=== PATIENT | female | born 1990 | race Two or more races ===

== ENCOUNTER 2017-01-31 15:15 | Inpatient (IN) | payer SELFPAY ==
[~2017-01-31] VITALS: Ht 152.4 cm; Wt 111.6 kg
[2017-01-31] MEDS ORDERED: CITRIC ACID/SODIUM CITRATE 30 ML SOLUTION. PO ONE (17:15)
[2017-01-31 17:39] LABS: HEMATOCRIT 36.6 % (36.0-47.0); HEMOGLOBIN 12.1 g/dL (12.0-15.5); RED BLOOD COUNT 4.59 x10^6/uL (3.50-5.40); RED CELL DISTRIBUTION WIDTH 15.7 % (11.5-14.5)
[2017-01-31 17:43] VITALS: BP 109/71
[2017-01-31] MEDS ORDERED: PNV1TABL25 PO (17:46)
[2017-01-31] MEDS: IV RINGERS,LACTATED 1000ML 1,000 ML IV SCH ×3 (17:47→22:00)
[2017-01-31] MEDS ORDERED: 0.9 % SODIUM CHLORIDE 10 ML DISP.SYRIN. IV PRN (19:15)
[2017-01-31] MEDS ORDERED: MMR per PROTOCOL. MC PRN (19:15)
[2017-01-31] MEDS ORDERED: ZOLPIDEM 5 MG TABLET. PO PRN (19:15)
[2017-01-31] MEDS ORDERED: HYDROCORTISONE 1% TOPICAL OINTMENT 30GM TUBE. TP PRN (19:15)
[2017-01-31] MEDS ORDERED: ONDANSETRON PF 4 MG/2 ML VIAL. IV PRN (19:15)
[2017-01-31] MEDS ORDERED: diphenhydrAMINE ORAL ELIXIR 12.5 MG/5 ML ML PO PRN (19:15)
[2017-01-31] MEDS ORDERED: OXYTOCIN 30 UNIT/500 ML PREMIX 500 ML IV PRN (19:15)
[2017-01-31] MEDS ORDERED: ATROPINE 0.5 MG/5 ML DISP.SYRIN. IV PRN (19:30)
[2017-01-31] MEDS ORDERED: NALOXONE 0.4 MG/ML VIAL. IV PRN (19:30)
[2017-01-31] MEDS ORDERED: MORPHINE PF 5 MG/10 ML VIAL. ONE (19:39)
[2017-01-31] MEDS ORDERED: fentaNYL PF VIAL 100 MCG/2 ML VIAL ONE (19:39)
[2017-01-31] MEDS ORDERED: LIDOCAINE 1% PF 5 ML VIAL. ONE (19:52)
[2017-01-31] MEDS ORDERED: PROPOFOL 0 ML IV ONE (20:10)
[2017-01-31] MEDS ORDERED: OXYTOCIN 10 UNIT/ML VIAL. ONE ×3 (20:20→20:51)
[2017-01-31] MEDS ORDERED: ONDANSETRON PF 4 MG/2 ML VIAL. ONE (20:26)
--- NOTE | 2017-01-31 22:30 | HP ---
ADMIT DATE: 01/31/2017 CHIEF COMPLAINT AND HISTORY OF PRESENT ILLNESS: This patient is a 27-year-old [place] lady, who is a 3 para 2, EDC 02/04/2017, had a course without any problems, but she did gain more weight during and also has a large baby and she came into labor and delivery room with a history of having pelvic pressure and some pelvic pain. OBJECTIVE: VITAL SIGNS: Stable. ABDOMEN: Term-size uterus. heart tones are 140 per minute, vertex presenting. PELVIC: Shows cervical os is closed and presenting part is way up high and ____. EXTREMITIES: No edema of feet. IMPRESSION: 3 para 2 and obesity with a large baby. PLAN: Primary lower segment section. CELESTINE FAJARDO MD DR: HERNANDEZ/yecenia JOB#: [id number] / [id number]
[2017-02-01] VITALS (7 sets, daily range): BP systolic 81–112; BP diastolic 42–63
--- NOTE | 2017-02-01 00:21 | OP ---
DATE OF SURGERY: PREOPERATIVE DIAGNOSIS: 3, para 2, large baby, obesity. POSTOPERATIVE DIAGNOSIS: 3, para 2, large baby, obesity. OPERATION PERFORMED: Lower segment section. OPERATIVE PROCEDURE: The patient was taken to the operating room and a spinal block was given and the patient was placed in the dorsal supine position. Rosas catheter introduced in the bladder for continuous bladder drainage. Lower abdomen is prepped and draped in the usual manner. Pfannenstiel incision was done. Abdomen opened in layers and the bladder flap peritoneum was dissected. Bladder was pushed way down the lower segment of the uterus. An incision was made on the uterus and was extended on either side using index fingers. Amniotomy done. A live female weighing 8 pounds was delivered at 2025 on 01/31/2017, with the score of 8 and 9 without any problem. There was cord around the neck, which was released at the time of the delivery. Cord was clamped and cut. Cord blood was taken. Placenta removed. membranes that was also from the uterus. Uterus sutured in 2 layers using #1 chromic catgut sutures and a reperitonealization was done with continuous 0 chromic catgut sutures and all the clots in the pelvic cavity removed. Abdomen closed in layers using continuous 0 chromic catgut sutures for the peritoneum, the muscle, the fascia, 3-0 plain sutures applied for subcutaneous tissue and the 3-0 Vicryl subcutaneous sutures were placed, a pressure dressing was given. The patient was sent to the recovery room in good condition. No complications encountered at the time of the procedure. Estimated blood loss about 700 mL. Baby is referred to filtering machine tender for further care and treatment. Mother tolerated the delivery well. No complications. CELESTINE FAJARDO MD DR: HERNANDEZ/yecenia JOB#: [id number] / [id number]
[2017-02-01] MEDS: KETOROLAC TROMETHAMINE 30 MG/ML INJ. IV PRN ×2 (00:46→08:36)
[2017-02-01] MEDS: IV RINGERS,LACTATED 1000ML 1,000 ML IV SCH (03:55)
[2017-02-01] MEDS ORDERED: FERROUS SULFATE 325 MG TABLET. PO SCH (08:00)
--- NOTE | 2017-02-01 09:15 | PDOC ---
SUBJECTIVE Subjective Patient feeling better Doing ok OBJECTIVE Objective Vital signs stable No fever Vital Signs Vital Signs Date Time Temp Pulse Resp B/P Pulse Ox O2 Delivery O2 Flow Rate FiO2 02/01/17 05:57 97.9 77 18 92/50 97.9 02/01/17 01:38 97.7 78 16 81/42 94 Room Air 97.7 02/01/17 00:40 97.5 79 18 100/63 95 Room Air 97.5 02/01/17 00:10 97.7 77 18 111/50 97 Room Air 97.7 01/31/17 17:43 96.0 20 109/71 Room Air 96.0 I & O Intake and Output 02/01/17 07:00 Intake Total 1754 ml Output Total 150 ml Balance 1604 ml Intake Oral 500 ml IV Total 625 ml Other 629 ml Output Urine Total 150 ml PHYSICAL EXAM Physical Exam Abdomen soft Uterus firm Lochia Normal ASSESSMENT/PLAN Assessment/Plan Doing well Will Ambulate today Problems: COMMENT Lab Laboratory Tests Test 01/31/17 17:25 White Blood Count 12.0x10^3/uL (4.0-11.0) Red Blood Count 4.59x10^6/uL (3.50-5.40) Hemoglobin 12.1g/dL (12.0-15.5) Hematocrit 36.6% (36.0-47.0) Mean Corpuscular Volume 80fL (79-100) Mean Corpuscular Hemoglobin 26pg (25-35) Mean Corpuscular Hemoglobin Concent 33g/dL (31-37) Red Cell Distribution Width 15.7% (11.5-14.5) Platelet Count 464x10^3/uL (140-400) CELESTINE FAJARDO MD Feb 01, 2017 09:15
[2017-02-01] MEDS: IBUPROFEN 600 MG TABLET. PO SCH ×2 (12:00→13:51)
[2017-02-01] MEDS: OXYCODONE/APAP 5/325 TABLET. PO PRN ×2 (12:52→16:16)
[2017-02-02 06:00] VITALS: BP 107/58
[2017-02-02] MEDS: OXYCODONE/APAP 5/325 TABLET. PO PRN ×2 (06:16→17:16)
[2017-02-02 06:19] LABS: RPR REFLEX Non Reactive (Non Reactive)
[2017-02-02] MEDS: DOCUSATE SODIUM 100 MG CAPSULE. PO PRN (08:07)
[2017-02-02] MEDS: IBUPROFEN 600 MG TABLET. PO SCH ×2 (08:09→17:17)
--- NOTE | 2017-02-02 08:31 | PDOC ---
SUBJECTIVE Subjective Patient breast feeding the baby OBJECTIVE Objective Vital signs stable No problems Vital Signs Vital Signs Date Time Temp Pulse Resp B/P Pulse Ox O2 Delivery O2 Flow Rate FiO2 02/02/17 06:16 18 96 Room Air 02/02/17 06:00 98.1 87 18 107/58 96 98.1 02/01/17 21:00 97.9 86 98/58 97 97.9 02/01/17 16:22 98.3 68 18 112/62 98.3 02/01/17 11:57 98.1 71 20 93/47 97 Room Air 98.1 I & O Intake and Output 02/02/17 06:59 Intake Total 210 ml Output Total 550 ml Balance -340 ml Intake Oral 210 ml Output Urine Total 550 ml PHYSICAL EXAM Physical Exam Abdomen soft No fever ASSESSMENT/PLAN Assessment/Plan Doing ok Incision healing ok Problems: CELESTINE FAJARDO MD Feb 02, 2017 08:31
[2017-02-02 09:59] VITALS: BP 92/54
[2017-02-02 14:11] VITALS: BP 97/61
[2017-02-02 20:40] VITALS: BP 97/64
[2017-02-02] MEDS: MAG HYDROX/ALUMINUM HYD/SIMETH 30 ML ORAL.SUSP PO PRN (22:11)
[2017-02-03 05:56] VITALS: BP 98/64
[2017-02-03] MEDS: IBUPROFEN 600 MG TABLET. PO SCH ×2 (06:06→14:54)
[2017-02-03] MEDS: OXYCODONE/APAP 5/325 TABLET. PO PRN ×2 (06:06→14:54)
[2017-02-03 07:55] VITALS: BP 93/59
[2017-02-03] MEDS: DOCUSATE SODIUM 100 MG CAPSULE. PO PRN (09:19)
[2017-02-03] MEDS: MAG HYDROX/ALUMINUM HYD/SIMETH 30 ML ORAL.SUSP PO PRN (09:19)
[2017-02-03] MEDS ORDERED: DIPHTH,PERTUSS(ACELL),TET TOX 0.5 ML DISP.SYRIN. VAX IM ONE (10:00)
--- NOTE | 2017-02-03 11:06 | PDOC ---
SUBJECTIVE Subjective Doing ok No problems OBJECTIVE Objective Vital signs stable Vital Signs Vital Signs Date Time Temp Pulse Resp B/P Pulse Ox O2 Delivery O2 Flow Rate FiO2 02/03/17 07:55 97.5 78 18 93/59 97 Room Air 97.5 02/03/17 06:06 18 98 Room Air 02/03/17 05:56 97.8 85 18 98/64 97 Room Air 97.8 02/02/17 20:40 97.9 82 18 97/64 97 Room Air 97.9 02/02/17 14:11 98.2 93 18 97/61 96 98.2 PHYSICAL EXAM Physical Exam Abdomen soft No fever Lochia normal ASSESSMENT/PLAN Assessment/Plan Patient can go home today Will see her in office in 2 weeks Problems: CELESTINE FAJARDO MD Feb 03, 2017 11:06
[2017-02-03 14:45] VITALS: BP 105/67
== END 2017-02-03 16:00 | disposition home or self-care (01) | DRG 765 ==
LOC: OBSVTOIN 15:15 → 3 SO LND 15:15 → 3 NORTH 02-01 00:09
PROVIDERS: ADMIT Obstetrics & Gynecology; ATTEND Obstetrics & Gynecology
PROC: 10D00Z1 Extraction of Products of Conception, Low, Open Approach (ICD-10-PCS; principal; 2017-01-31)
DX: O99.214 Obesity complicating childbirth (principal); Z68.42 Body mass index [BMI] 45.0-49.9, adult; O36.63X0 Maternal care for excessive fetal growth, third trimester, not applicable or unspecified; Z3A.00 Weeks of gestation of pregnancy not specified; Z37.0 Single live birth; E66.9 Obesity, unspecified
CPT/HCPCS: 36415; 85027; 86593; 86850; 86900; 86901; 90715; G0378; J0690; J1885; J2270; J2405; J2590; J2704; J3010; J7120